=== PATIENT | female | born 1980 | race Caucasian/White ===

== ENCOUNTER → 2020-04-27 10:41 | Outpatient (CLI) | payer OTHER, SELFPAY ==
--- NOTE | 2020-04-27 10:44 | VDLE_ITS ---
Reason For Study: RLE PAIN RIGHT LEFT GSV is normal. CFV is compressible, spontaneous, phasic, CFV is compressible, spontaneous, phasic, competent, and demonstrates normal competent and demonstrates normal augmentation. augmentation. FV is compressible, spontaneous, phasic, competent and demonstrates normal augmentation. POP V is compressible, spontaneous, phasic, competent and demonstrates normal augmentation. T/P Trunk is compressible. PTV is compressible. RT PerV is compressible. Procedure This is a venous duplex using B-mode, color flow and spectral Doppler. Exam performed in department. The exam was diagnostic. A preliminary report was called and/or faxed to DR. Raphael @ 11:15 am @ [phone]. Interpretation Summary Deep veins of the right lower extremity are patent and compressible segmentally. There is no evidence of right lower extremity deep vein thrombosis. Valvular competence appears intact within the proximal deep venous system on the right . The right great saphenous vein appears patent and compressible segmentally. Ordering Physician: Bert Raphael Referring Physician: Forrest Thrasher Performed By: Flory Cruz, CARRIE, RVT
== END ==
PROVIDERS: PCP Nurse Practitioner Primary Care; Referring Provider Orthopaedic Surgery; Visit Provider Orthopaedic Surgery
DX: M79.661 Pain in right lower leg (principal)
CPT/HCPCS: 93971

== ENCOUNTER 2022-01-06 13:13 | Emergency (ER) | payer OTHER, SELFPAY ==
[2022-01-06] VITALS (7 sets, daily range): BP systolic 122–147; BP diastolic 87–104; PULSE 98–119; RESP 14–18; TEMP 36.8; O2SAT 99–100; BMI 26.6
--- NOTE | 2022-01-06 13:24 | EKG12_ITS ---
Test Reason : CP Blood Pressure : / mmHG Vent. Rate : 114 BPM Atrial Rate : 114 BPM P-R Int : 144 ms QRS Dur : 088 ms QT Int : 334 ms P-R-T Axes : 017 044 020 degrees QTc Int : 460 ms Sinus tachycardia Confirmed by MARIELA ESCALANTE, PATRICE ([id number]), editorial intern NICA YEN ([id number]) on 01/08/2022 9:31:53 AM Referred By: PRASHANTH Confirmed By:PATRICE SIERRA MD
--- NOTE | 2022-01-06 13:24 | CT_ITS ---
STUDY: CTA CHEST REASON FOR EXAM: Female, 41 years old. Chest pain, tachycardia RADIATION DOSAGE (If Supplied By Facility): CTDIvol = ( 4.26 ) mGy, DLP = ( 134.50 ) mGycm TECHNIQUE: The examination was performed with the intravenous administration of IV 75mL Isovue-370. Post-processing of the angiographic images was performed, with multiplanar reformation and 3D reconstruction. Individualized dose optimization techniques were used for this CT. COMPARISON: None. FINDINGS: Normal enhancement of the main pulmonary artery and right and left pulmonary arteries. Normal enhancement of the bilateral peripheral pulmonary arteries. There is no demonstrated pulmonary embolism. Normal thoracic aorta and visualized great vessels. There is no demonstrated aortic dissection. Normal heart and pericardium. Normal mediastinum. Normal hilar regions. Normal visualized trachea and bronchi. The lungs are well expanded. Normal pulmonary parenchyma. Normal pleura. Normal chest wall structures. Normal osseous structures. Normal visualized upper abdomen. CT/CTA Chest W/WO Contrast IMPRESSION: Normal CTA chest examination, without a demonstrated pulmonary embolism or arterial dissection. Electronically Signed: Magdy Burns MD at 14:29 EDT ,
--- NOTE | 2022-01-06 13:25 | EDS_ITS ---
HPI History of Present Illness Chief Complaint: Chest Pain Informant: patient Onset/Context/Timing Current Severity: 08/31 Narrative Narrative: Presents the emergency department with complaint of chest pain that started approximately 9 AM. Patient states that she was sitting at her desk when she started having sudden onset of racing heart. Patient checked her pulse and it was at 180 but she was not sure if she did the math correctly. Patient then repeated several times and it was down into the 140s. She has no history of SVT. She does give history of surgery on her right rotator cuff 11 weeks ago. She has no history of PE or DVT. Currently she describes a pressure and heaviness in her left chest that radiates into her left shoulder. She denies significant shortness of breath or nausea or vomiting. She is never had discomfort like this before. She denies recent illness. She is had no fever or cough. Patient's father had an SD at the age of 50. Prior Similar Symptoms: No PFSH PFSH Home Medications cyclobenzaprine 10 mg tablet 10 mg PO DAILY 01/06/22 [History Last Taken Unknow n] linaclotide 290 mcg capsule (Linzess) 290 mcg PO DAILY 01/06/22 [History Last Taken Unknown] methylprednisolone 4 mg tablet 20 mg PO DAILY 01/06/22 [History Last Taken Unknown] nabumetone 750 mg tablet 750 mg PO BID 01/06/22 [History Last Taken Unknown] Allergy/AdvReac Type Severity Reaction Status Date / Time No Known Allergies Allergy Verified 01/06/22 13:17 Surgical History (Updated 01/06/22 @ 13:23 by Adriana Watters) History of repair of right rotator cuff Social History Smoking Status: Never smoker ROS ROS ED Review of Systems ROS Unobtainable: other Constitutional Constitutional ED: Reports lethargy; Denies chills, fever(s), sweats or weight loss Eyes Eyes: Denies blurry vision, change in vision or diplopia ENT ENT ED: Denies rhinorrhea or sore throat Cardiovascular Cardiovascular: Reports chest pain, palpitations and racing heartbeat; Denies orthopnea Respiratory/Chest Respiratory/Chest: Denies cough, dyspnea, dyspnea on exertion, orthopnea or sputum Gastrointestinal Gastrointestinal: Denies abdominal pain, diarrhea, nausea or vomiting Genitourinary Genitourinary ED: Denies dysuria, hematuria or urinary frequency Musculoskeletal Musculoskeletal: Denies arthralgias, back pain, myalgias or neck pain Integumentary Denies abscess, Abrasions or rash Neurologic Neurologic: Denies headache(s) or weakness Psychiatric Psychiatric: Denies anxiety, depression or suicidal thoughts Endocrine Endocrinology: Denies polydipsia, polyphagia or polyuria Hematologic/Lymphatic Hematologic/Lymphatic: Denies easy bleeding, easy bruising or lymphadenopathy Allergic/Immunologic Allergic/Immunologic ED: Denies mouth swelling, tongue swelling or urticaria EXAM Physical Exam Const Vital Signs: 01/06/22 13:14 01/06/22 13:21 01/06/22 13:23 Temperature 98.2 F Temperature Source Oral Pulse Rate 119 H 105 H Respiratory Rate 14 Respiratory Effort Normal Respiratory Pattern Normal Blood Pressure 147/104 H Blood Pressure Mean 118 Pulse Ox 100 Oxygen Delivery Method Room Air 01/06/22 13:29 01/06/22 13:37 01/06/22 14:06 Temperature Temperature Source Pulse Rate 110 H 99 Respiratory Rate 16 Respiratory Effort Respiratory Pattern Blood Pressure 130/98 H 130/90 H Blood Pressure Mean 103 Pulse Ox 100 Oxygen Delivery Method Room Air Room Air 01/06/22 14:11 Temperature Temperature Source Pulse Rate 98 Respiratory Rate Respiratory Effort Respiratory Pattern Blood Pressure 130/90 H Blood Pressure Mean Pulse Ox Oxygen Delivery Method Positive well nourished and well developed General Appearance ED: well developed and NAD HEENT Reports TM's clear and moist mucous membranes normocephalic and atraumatic; Negative for trauma or tenderness Tympanic Membrane ED: Yes TM's clear Eyes PERRL and EOMs intact bilaterally General Eye ED: Negative for pale conjunctiva or scleral icterus Neck no lymphadenopathy, supple and no JVD General: Negative for tenderness Chest Wall inspection of chest normal and palpation of chest normal Chest: Negative for tenderness Resp normal respiratory effort and clear to auscultation bilaterally Effort and Inspection: Negative for respiratory distress or pain with movement Auscultation: Negative for rhonchi, wheezes or diminished lung sounds Cardio regular rhythm, S1 normal heart sound, S2 normal heart sound and no murmurs Rate: tachycardic and other Other Details: Patient with a mild tachycardia. No murmurs auscultated. Chest wall mostly nontender and cannot reproduce her pain with palpation. Peripheral Pulses: pulses 2+ throughout GI normal to inspection, nondistended, normoactive bowel sounds, soft to palpation, non-tender, non-distended and no masses Back/Spine no CVA tenderness and no thoracic nor lumbar tenderness Extremity normal to inspection General Extremety ED: Negative for edema General Extremity: Negative for edema Neuro oriented x3, CN's II-XII intact bilaterally, no sensory deficits noted and gait normal Sensorium / Orientation: awake, alert, oriented to person, oriented to place and oriented to time Motor Exam: strength 5/5 throughout and strength abnormal Psych mental status grossly normal Skin no rashes or lesions noted and no wounds Heart Score History: Slightly/Non-Suspicious ECG: Nonspecific Repolarization Age: </= 45 years Risk Factors: 1 or 2 Risk Factors Troponin: </= Normal Limit Score: 2 MDM MDM MDM Narrative Medical decision making narrative: Line established on arrival. Patient was given aspirin. Patient was given sublingual nitro and that seemed to resolve her pain. CTA of the chest was obtained and was read as negative for PE or dissection. CBC with differential count of 14.8, hemoglobin 14, hematocrit 42, platelets 311. Chemistries unremarkable. Troponin was 40 which is normal. This point I did discuss case with underwriting specialist on-call and plan will be to perform a delta troponin and if negative to place Holter monitor on patient and have her follow-up with cardiology. Her heart score here was a 2. She is currently pain-free and heart rate down into the 90s at rest. Patient care turned over to evening physician awaiting delta troponin and final disposition. Lab Data Attestation: I reviewed the patient's lab results. Labs: Laboratory Results - last 24 hr 01/06/22 01/06/22 13:20 13:20 WBC 14.8 H RBC 4.67 Hgb 14.4 Hct 42.5 MCV 91.0 MCH 30.8 MCHC 33.9 RDW Std Deviation 41.5 RDW Coeff of Je 12.6 Plt Count 311 MPV 10.1 Immature Gran % (Auto) 0.300 Neut % (Auto) 80.3 H Lymph % (Auto) 13.2 L Bledsoe % (Auto) 5.8 Eos % (Auto) 0.1 Baso % (Auto) 0.3 Absolute Neuts (auto) 11.9 H Absolute Lymphs (auto) 1.95 Nucleated RBC % 0 Sodium 140 Potassium 4.0 Chloride 104 Carbon Dioxide 26.0 Anion Gap 10 BUN 20 H Creatinine 0.82 Estim Creat Clear Calc 72.13 Est GFR (MDRD) Af Amer 99 Est GFR (MDRD) Non-Af 82 BUN/Creatinine Ratio 24.4 H Glucose 107 H Calcium 9.7 Troponin I High Sens 40 Radiography Diagnostic Testing: Clinical Impression(s) from Imaging Studies Chest CTA 01/06/22 13:24 IMPRESSION: Normal CTA chest examination, without a demonstrated pulmonary embolism or arterial dissection. Electronically Signed: Magdy Burns MD at 14:29 EDT , EKG Initial EKG: Attestation: I personally reviewed and interpreted this EKG as follows: Comments: Sinus tachycardia with a rate of 114 bpm Discharge Plan Triage Chief Complaint: Chest Pain ED Provider: Freeman Melvin Dx/Rx/DC Orders Clinical Impression: Chest pain, Tachycardia Prescriptions: No Action cyclobenzaprine 10 mg tablet 10 mg PO DAILY nabumetone 750 mg tablet 750 mg PO BID methylprednisolone 4 mg tablet 20 mg PO DAILY Rx Instructions: ON A TAPER. 24MG FIRST DAY 20,16,12,8,4 Linzess 290 mcg Capsule 290 mcg PO DAILY Primary Care Provider: Forrest Thrasher NP Referrals: Forrest Thrasher NP, [employer] [Primary Care Provider] -
[2022-01-06] MEDS: Aspirin 81 MG TAB.CHEW 324 MG PO (13:32)
[2022-01-06 13:33] LABS: Absolute Lymphocyte Count 1.95 X10^3/uL (0.83-4.51); Absolute Neutrophil Count 11.9 X10^3/uL (2.0-7.7); Basophil# 0.04 X10^3/uL; Basophil% 0.3 % (0-1); Eosinophil# 0.02 X10^3/uL; Eosinophils% 0.1 % (0-5); Hematocrit 42.5 % (37-47); Hemoglobin 14.4 g/dL (12.0-15.0); Lymphocyte # 1.95 X10^3/ul (0.83-4.51); Lymphocyte % 13.2 % (19-41); Mean Corp Hgb Conc 33.9 g/dL (32-36); Mean Corpuscular Hgb 30.8 pg (27.0-32.0); Mean Platelet Vol. 10.1 fl (6.2-12.0); Monocyte# 0.86 X10^3/uL; Monocyte% 5.8 % (0-10); NRBC Flagged by Analyzer 0 % (0-5); Neutrophil % 80.3 % (47-70); Platelet Count 311 K/mm3 (150-450); RBC Distribution Width CV 12.6 % (11.6-14.6); RBC Distribution Width SD 41.5 fl (35.1-43.9); Red Blood Count 4.67 M/mm3 (4.2-5.4); White Blood Count 14.8 K/mm3 (4.4-11.0)
[2022-01-06] MEDS: 0.9% Normal Saline 1,000 ML 150 ML IV (13:36)
[2022-01-06] MEDS: Nitroglycerin SL (ED/IMG/CATH) 0.4 MG TABLET SL ×2 (13:37→14:11)
[2022-01-06 13:51] LABS: Anion Gap 10 (5-15); BUN 20 mg/dL (7-18); BUN/Creat Ratio 24.4 RATIO (10-20); Calcium,Total 9.7 mg/dL (8.5-10.1); Chloride 104 mmol/L (98-107); Creatinine, Serum 0.82 mg/dL (0.55-1.02); EST Glomerular Filtration Rate 82 mL/min (>60); Est Glom Filt Rate - Afr Amer 99 mL/min (>60); Estimated Creatinine Clearance 72.13 ml/min; Glucose 107 mg/dL (74-106); Sodium Level 140 mmol/L (136-145); Troponin-I HS (w/2H Reflex) 40 pg/mL (3.0-54.0)
[2022-01-06 15:29] LABS: Reflex Troponin-HS? (from REC) Y
[2022-01-06 15:59] LABS: Troponin-I HS 39 pg/mL (3.0-54.0)
== END 2022-01-06 16:31 | disposition home or self-care (01) ==
PROVIDERS: Emergency Provider Emergency Medicine; PCP Nurse Practitioner Primary Care; Visit Provider Emergency Medicine
DX: R07.9 Chest pain, unspecified (principal); R00.0 Tachycardia, unspecified
CPT/HCPCS: 71275; 80048; 84484; 85025; 93005; 96360; 96361; 99284; J7030; Q9967; A4216

== ENCOUNTER → 2022-01-06 | Outpatient (CLI) | payer OTHER, SELFPAY | END | disposition home or self-care (01) | LOC: CVS 16:27 | PROVIDERS: PCP Nurse Practitioner Primary Care; Visit Provider Emergency Medicine | DX: R00.0 Tachycardia, unspecified (principal) | CPT/HCPCS: 93225; 93226 ==

== ENCOUNTER → 2023-12-13 | Outpatient (CLI) | payer OTHER, SELFPAY ==
--- NOTE | 2023-12-13 10:56 | VDLE_ITS ---
Reason For Study: RLE Pain RIGHT LEFT GSV is normal. FV is compressible, spontaneous, phasic, CFV is compressible, spontaneous, phasic, competent and demonstrates normal competent and demonstrates normal augmentation. augmentation. FV is compressible, spontaneous, phasic, competent and demonstrates normal augmentation. POP V is compressible, spontaneous, phasic, competent and demonstrates normal augmentation. T/P Trunk is compressible. PTV is compressible. RT PerV is compressible. Procedure This is a venous duplex using B-mode, color flow and spectral Doppler. Exam performed in department. The exam was diagnostic. A preliminary report was called and/or faxed to Damon QUINTERO / Christina Guo. VL/Venous Duplex US, Unilateral Interpretation Summary Deep veins of the right lower extremity are patent and compressible segmentally . There is no evidence of right lower extremity deep vein thrombosis. Valvular competence robb ears intact within the proximal deep venous system on the right . The right great saphenous vein a ppears patent and compressible segmentally. The left femoral vein is patent and compressible. Ordering Physician: Bentley Jose Referring Physician: Forrest Thrasher Performed By: Wilbert Guerrero RVT
== END | disposition home or self-care (01) ==
PROVIDERS: PCP Nurse Practitioner Primary Care; Referring Provider Physician Assistant; Visit Provider Physician Assistant
DX: M79.661 Pain in right lower leg (principal); Z96.651 Presence of right artificial knee joint
CPT/HCPCS: 93971